=== PATIENT | female | born 1965 | race African-American/Black ===

== ENCOUNTER 2022-04-11 09:56 | Outpatient (CLI) | payer MEDICARE, MEDICAID | END 2022-04-11 09:57 | disposition home or self-care (01) | LOC: CSHLAB 09:56 | PROVIDERS: ATTEND Internal Medicine Gastroenterology | DX: Z20.822 Contact with and (suspected) exposure to COVID-19 (principal); Z12.11 Encounter for screening for malignant neoplasm of colon | CPT/HCPCS: 87811 ==